=== PATIENT | female | born 1965 | race Hispanic/Latino ===

== ENCOUNTER 2016-07-21 16:47 | Emergency (ER) | payer OTHER ==
[~2016-07-21] VITALS: Ht 160 cm; Wt 63.2 kg
[~2016-07-21 16:47] MED LIST: ASPIR-LOW81 MG PO; ATORVASTATIN CA40 MG PO; CLINDAMYCIN HC150 MG PO; CLONAZEPAM0.5 MG PO; Chronulac,Cephulac,E PO; DICLOFENAC SODI75 MG PO; EXCEDRIN MIGRA1 EAC3 PO; GABAPENTIN100 MG PO; K-DUR20 MEQ PO; KLONOPIN0.5 M1 PO; KLONOPIN1 MG PO; KLONOPIN2 MG PO; KlonoPIN PO; LAMICTAL100 MG PO; MOTRIN800 MG PO; NABUMETONE750 MG PO; NICOTINE PATCH1 EAC2 TD; OXAYDO5 MG PO; OXYCODONE-APAP1 EAC6; PANTOPRAZOLE SO40 MG PO; PEGASYS180 MCG/0. SC; PERCOCET 5/31 TABLET PO; PERCOCET 7.51 TABLET; PERCOCET 7.51 TABLET PO; PRAZOSIN HCL1 MG PO; PROAIR HFA8.5 GM IH; Percocet 7.5/325,End PO; SERTRALINE HCL100 MG PO; TIZANIDINE HCL4 MG PO; TOPAMAX100 MG PO; TOPAMAX200 MG PO; TOPAMAX25 MG PO; TORADOL10 MG PO; ULTRAM50 MG PO; ZANAFLEX4 M1 PO; ZANAFLEX4 MG PO; ZOLOFT100 MG PO; ZYRTEC10 M1 PO; [UNRECOGNIZED DRUG - OTHER] PO
[2016-07-21 18:36] LABS: ADD MIUA? YES; BILIRUBIN SMALL; BLOOD NEGATIVE; COLOR DK YELLOW ((YELLOW)); GLUCOSE (STRIP) NEGATIVE; KETONES 40; LEUKOCYTES SMALL; NITRITE NEGATIVE; PROTEIN (STRIP) 30; SPECIFIC GRAVITY 1.032 (1.000-1.030); UROBILINOGEN 0.2 MG/DL (0.2-1.0)
[2016-07-21 18:50] LABS: HEMATOCRIT 48.7 % (36.0-46.0); MCH 28.4 PG (29.0-34.0); MCHC 32.9 G/DL (30.0-36.0); MCV 86.3 FL (83-99); PLATELET COUNT 204 K/uL (156-360); RBC DIS.WIDTH-CV 14.5 % (11.8-14.6); RBC DIS.WIDTH-SD 46.2 % (39-53); RED BLOOD COUNT 5.64 M/uL (3.80-5.20); WHITE BLOOD COUNT 6.9 K/uL (4.1-10.2)
[2016-07-21 18:52] LABS: BACTERIA 3+; CASTS PRESENT /LPF; CRYSTALS PRESENT; EPITHELIAL CELLS 1+; MUCUS 4+; RED BLOOD CELLS 0-5 /HPF (0-5); UCUL ADDED? YES; WHITE BLOOD CELLS 15-20 /HPF (0-5)
[2016-07-21 18:53] LABS: AMORPHOUS URATES CRYSTALS 2+; FINE GRANULAR CASTS 0-5 /LPF; HYALINE CASTS 0-5 /LPF; URIC ACID CRYSTALS 2+
[2016-07-21 19:06] LABS: CHLORIDE 106 mEq/L (99-109); POTASSIUM 4.3 mEq/L (3.7-5.4); SODIUM 139 mEq/L (136-147)
[2016-07-21 19:09] LABS: GLUCOSE 111 mg/dL (70-99)
[2016-07-21 19:10] LABS: ANION GAP 12 MEQ/L (2-14)
[2016-07-21 19:11] LABS: TOTAL BILIRUBIN 0.7 mg/dL (0.0-1.0)
[2016-07-21 19:12] LABS: ALKALINE PHOSPHATASE 50 IU/L (3-129); GFR ESTIMATE (CALCULATED) > 59 mL/min/
[2016-07-21 19:13] LABS: QUANTITATIVE HCG < 4.0 MIU/ML; UREA NITROGEN (BUN) 10 mg/dL (9-23)
[2016-07-21 19:16] LABS: LIPASE 22 U/L (1.0-51.0)
[2016-07-21] MEDS ORDERED: REGLAN5 MG PO (19:46)
[2016-07-21] MEDS ORDERED: KEFLEX500 MG PO (19:46)
[2016-07-21 20:30] VITALS: BP 137/74
== END 2016-07-21 20:30 | disposition home or self-care (01) ==
LOC: EME 16:47
DX: K29.70 Gastritis, unspecified, without bleeding (principal); N39.0 Urinary tract infection, site not specified; E86.0 Dehydration; J45.909 Unspecified asthma, uncomplicated; F17.200 Nicotine dependence, unspecified, uncomplicated
CPT/HCPCS: 80053; 81003; 83690; 84702; 85027; 87086; 99281; 99285; J0696; J2405; J2765; J7030; J7050